=== PATIENT | male | born 1940 | race Caucasian/White ===

== ENCOUNTER 2017-10-08 06:58 | Day surgery (SDC) | payer MEDICARE, BC ==
[2017-10-08] MEDS ORDERED: fentaNYL 100 MCG/2 ML SDV ONE (07:02)
[2017-10-08] MEDS ORDERED: Propofol 200 MG/20 ML SDV ONE (07:02)
[2017-10-08] MEDS ORDERED: Midazolam 1 MG/ML 2 ML SDV ONE (07:03)
[2017-10-08] MEDS ORDERED: Lactated Ringers 1,000 ML IV SCH (07:45)
--- NOTE | 2017-10-08 09:16 | PROC ---
DATE OF PROCEDURE: 10/08/2017 INDICATION: Jama is a 77-year-old male who comes in for a screening colonoscopy. The risks and benefits were explained to the patient who was taken to the OR. PROCEDURE IN DETAIL: Anesthesia was given by nurse drum builder. During the procedure, we used 2 mg of Versed, 2 mL of fentanyl, and 20 mg of propofol. The Olympus 180L scope was used. With a gloved finger, the rectum was examined and the tube was placed in the rectum and advanced under direct vision. We did get to the cecum with the help of external pressure. Upon retraction of the tube, no lesions, ulceration, or abnormalities until we got to 18 cm, noted 2 polyps. These were both biopsied. The remainder of the colon was unremarkable and the tube was removed. The patient tolerated the procedure well. PREOP: Screening colonoscopy. POSTOP: Two small polyps noted at 18 cm, each was 3 mm in size. These are most likely hyperplastic, but the pathology report is pending. Hugo Redding MD /[id number]
[2017-10-08 10:30] VITALS: BP 148/85
== END 2017-10-08 10:15 | disposition home or self-care (01) ==
LOC: JP.SDS 06:58
PROVIDERS: ATTEND Internal Medicine
DX: Z12.11 Encounter for screening for malignant neoplasm of colon (principal); K63.5 Polyp of colon; I10 Essential (primary) hypertension
CPT/HCPCS: 45380; J2250; J2704; J3010; J7120; 88305